=== PATIENT | female | born 1975 | race Two or more races ===

== ENCOUNTER 2016-10-18 12:24 | Emergency (ER) | payer OTHER ==
[2016-10-18 13:24] LABS: ALBUMIN 3.5 g/dL (3.4-5.0); ALKALINE PHOSPHATASE 75 U/L (46-116); ALT/SGPT 20 U/L (14-59); AMYLASE 66 U/L (25-115); AST/SGOT 16 U/L (15-37); BILIRUBIN TOTAL 0.9 mg/dL (0.20-1.00); CALCIUM 8.1 mg/dL (8.5-10.1); CARBON DIOXIDE 26.7 mmol/L (21-32); CHLORIDE SERUM 103 mmol/L (98-107); CREATININE SERUM 0.8 mg/dL (0.6-1.0); GFR1 > 60 mL/min; GLUCOSE SERUM 111 mg/dL (74-106); LIPASE 117 IU/L (73-393); POTASSIUM SERUM 3.7 mmol/L (3.5-5.1); SODIUM SERUM 139 mmol/L (136-145); TOTAL PROTEIN, SERUM 6.8 g/dL (6.4-8.2)
[2016-10-18 13:26] LABS: BASOPHIL % 1.4 % (0-2); PLATELET COUNT 182 x10^3mcL (130-400)
[2016-10-18 13:45] LABS: UA SPECIFIC GRAVITY >=1.030 (1.005-1.035); microscopic required? YES; urine erythrocyte NEGATIVE (NEGATIVE)
[2016-10-18 15:37] VITALS: BP 98/56
== END 2016-10-18 15:37 | disposition home or self-care (01) ==
LOC: ED 12:24
PROVIDERS: Specialist
DX: R10.84 Generalized abdominal pain (principal); R11.10 Vomiting, unspecified
CPT/HCPCS: 83880; J1885; J7030

== ENCOUNTER 2017-01-24 22:57 | Emergency (ER) | payer OTHER ==
[2017-01-25 00:47] VITALS: BP 128/76
== END 2017-01-25 00:47 | disposition home or self-care (01) ==
LOC: ED 22:57
DX: L02.416 Cutaneous abscess of left lower limb (principal); Z88.2 Allergy status to sulfonamides
CPT/HCPCS: J1885; J2001

== ENCOUNTER 2017-06-01 19:48 | Emergency (ER) | payer OTHER ==
[~2017-06-01] VITALS: Ht 157.5 cm; Wt 63.5 kg
[2017-06-01 19:56] VITALS: Ht 157.5 cm; Wt 63.5 kg
[2017-06-01 22:14] VITALS: BP 111/72
== END 2017-06-01 22:14 | disposition home or self-care (01) ==
LOC: ED 19:48
DX: J01.90 Acute sinusitis, unspecified (principal); J06.9 Acute upper respiratory infection, unspecified; Z88.2 Allergy status to sulfonamides
CPT/HCPCS: J1885